=== PATIENT | female | born 1965 | race Caucasian/White ===

== ENCOUNTER 2020-07-31 08:45 | Outpatient (CLI) | payer OTHER, SELFPAY | END 2020-07-31 08:46 | disposition home or self-care (01) | LOC: CHSCOVIDVC 08:45 | PROVIDERS: PCP Internal Medicine | DX: Z23 Encounter for immunization (principal) | CPT/HCPCS: 0011A; 91301 ==

== ENCOUNTER 2020-08-28 09:01 | Outpatient (CLI) | payer OTHER, SELFPAY | END 2020-08-28 09:02 | disposition home or self-care (01) | LOC: CHSCOVIDVC 09:01 | PROVIDERS: PCP Internal Medicine | DX: Z23 Encounter for immunization (principal) | CPT/HCPCS: 0012A; 91301 ==

== ENCOUNTER 2024-02-11 13:03 | Emergency (ER) | payer OTHER, SELFPAY ==
[2024-02-11 13:03] VITALS: BP 109/65; PULSE 103; RESP 18; TEMP 36.7; O2SAT 100
--- NOTE | 2024-02-11 13:15 | ED_ITS ---
HPI - Skin/Abscess/Foreign Bdy General Chief complaint: Skin/Abscess/Foreign Body Stated complaint: LEG SORES Time Seen by Provider: 02/11/24 13:08 History of Present Illness HPI narrative: Pt presents with wounds on her left leg that have started bleeding more than usual. Pt has had the ulcers on her left leg for 6 years. Pt has not been to wound care because she has Medicaid and has not seen her PCP. Pt is type 2 diabetic. Blood sugars have been fine and she denies fever or chills, Related Data Allergies Allergy/AdvReac Type Severity Reaction Status Date / Time Penicillins Allergy Hives Verified 02/11/24 13:11 Review of Systems Review of Systems: All systems reviewed & are unremarkable except as noted in HPI and below Exam Const: General: healthy appearing and no acute distress Nutritional Appearance: well nourished Orientation/consciousness: patient oriented x3 Limitations: no limitations HENMT: Head: normal to inspection Neck: Neck: normal visual inspection Chest: Chest palpation & inspection: normal inspection of the chest Resp: Effort & Inspection: normal respiratory effort Auscultation: clear to auscultation bilaterally Cardio: Rate: regular rate Rhythm: regular rhythm GI: GI Palp: Yes Soft to palpation and No Tenderness to palpation present (GI) Auscultation: normal bowel sounds Skin: Other: several ulcers on left leg. no erythema or purulent drainage. No bleeding now. Neuro: General: patient oriented x3 and moves all extremities Speech: normal speech Extrem: General: edema Psych: Mental Status: mental status grossly normal Affect: normal affect Attitude: cooperative Course Vital Signs Vital signs: Vital Signs Temperature 98.1 F 02/11/24 13:03 Pulse Rate 103 H 02/11/24 13:03 Respiratory Rate 18 02/11/24 13:03 Blood Pressure 109/65 02/11/24 13:03 Pulse Oximetry 100 02/11/24 13:03 Oxygen Delivery Room Air 02/11/24 13:03 Temperature 98.1 F 02/11/24 13:03 Pulse Rate 103 H 02/11/24 13:03 Respiratory Rate 18 02/11/24 13:03 Blood Pressure 109/65 02/11/24 13:03 Pulse Oximetry 100 02/11/24 13:03 Oxygen Delivery Room Air 02/11/24 13:03 MDM - Skin/Abscess/Foreign Bdy MDM Narrative Medical decision making narrative: Pt has chronic ulcers to her left leg which are bleeding more recently. No fever or erythema. will start on antibiotics. Pt can follow up with Wound Care in [place]. will give number. Discharge Plan Discharge Clinical Impression: Skin ulcer due to diabetes mellitus Patient Disposition: Home, Self-Care Condition: Stable Instructions: Antibiotic Form, Diabetes and Your Skin (ED), Chronic Wounds (ED) Additional Instructions: call [facility] in [place] [phone] for follow up. Prescriptions: New sulfamethoxazole-trimethoprim [Bactrim DS] 800-160 mg tablet 1 tablet PO Q12H Qty: 20 0RF Follow-up/Referrals: Dong Barrera MD [Primary Care Provider] -
== END 2024-02-11 13:44 | disposition home or self-care (01) ==
PROVIDERS: Emergency Provider Emergency Medicine; PCP Internal Medicine
DX: E11.622 Type 2 diabetes mellitus with other skin ulcer (principal); L98.499 Non-pressure chronic ulcer of skin of other sites with unspecified severity
CPT/HCPCS: 99283

== ENCOUNTER 2024-03-11 12:43 | Outpatient (CLI) | payer OTHER, SELFPAY ==
--- NOTE | ~2024-03-11 | US_ITS ---
EXAMINATION: US arterial ankle brachial ind DATE: 03/11/2024 13:18 INDICATION: Chronic nonpressure ulcer at the left calf TECHNIQUE: Segmental pressures and plethysmographic and Doppler waveforms of the brachial and lower e xtremity arteries were obtained. COMPARISON: None. FINDINGS: Right and left brachial artery pressures of 96 mm Hg and 98 mm Hg, respectively, are concordant (norm al difference <= 30 mmHg). The right ankle-brachial index (JAVIER) is 2.06 (normal >= 0.9-1.0). The right great toe-brachial index (TBI) is 0.82 (normal >= 0.65). Arterial Doppler waveforms biphasic with brisk systolic upstrokes at both right posterior tibial and dorsalis pedis arteries. The left JAVIER is 1.12. The left TBI is 1.05. Arterial Doppler waveforms biphasic with brisk systolic u pstrokes at both left posterior tibial and dorsalis pedis arteries. IMPRESSION: 1. No significant arterial occlusive disease to the bilateral lower limbs with normal bilateral ABIs and TBIs. Reviewed, dictated and finalized at location A. [employer]
== END 2024-03-11 12:44 | disposition home or self-care (01) ==
LOC: CHSIMG 12:44
PROVIDERS: PCP Internal Medicine
DX: L97.221 Non-pressure chronic ulcer of left calf limited to breakdown of skin (principal)
CPT/HCPCS: 93922